=== PATIENT | female | born 1935 | race Caucasian/White ===

== ENCOUNTER → 2018-04-21 | Outpatient (CLI) | payer MEDICARE, OTHER ==
[~2018-04-21] MED LIST: AMLO-104 PO; CALC-649 PO; CETI10CA8 PO; CLO75 PO; DETROL LA PO; DIPH-740 PO; EZET1TAB81 PO; FERR-41 PO; FERROUS GLUCON325 M4 PO; FUR40 PO; GLUC750T10 PO; LEVO100T95 PO; LEVO75TA73 PO; LOSA50TA74 PO; MELA1TAB23 PO; MELO-205 PO; MON10 PO; MONT10TA PO; OFF PLAVIX; OLME40TA17 PO; ONDA4TAB PO; OXYB5TAB86 PO; OXYGENHOME INH; PAN20 PO; PAN40 PO; PER PO; POTA8TAB41 PO; PROM-110 PO; RIVA6CAP11 PO; SIMV-49 PO; SUCR1ORA13 PO; VAL80 PO; [UNRECOGNIZED DRUG - OTHER]; [UNRECOGNIZED DRUG - REMARK]
[2018-04-21 08:26] LABS: PLATELET COUNT, AUTOMATED 217 K/uL (150-450)
[2018-04-21 08:37] LABS: INR 0.93
[2018-04-21 09:04] LABS: LDL CHOLESTEROL 31 mg/dl
== END ==
LOC: LAB 07:59
PROVIDERS: ATTEND Family Medicine
DX: E78.5 Hyperlipidemia, unspecified (principal); E03.9 Hypothyroidism, unspecified; I10 Essential (primary) hypertension; R23.3 Spontaneous ecchymoses; M25.50 Pain in unspecified joint; M25.40 Effusion, unspecified joint
CPT/HCPCS: 36415; 82040; 82247; 82310; 82374; 82435; 82465; 82565; 82947; 83718; 84075; 84132; 84155; 84295; 84443; 84450; 84460; 84478; 84520; 85025; 85610; 85651; 85730; 86038; 86140; 86430

== ENCOUNTER 2018-05-31 14:05 | Outpatient (RCR) | payer MEDICARE, OTHER ==
[~2018-05-31 14:05] MED LIST changes: -LOSA50TA74 PO; +LOSA50TA80 PO
[2018-06-01] MEDS ORDERED: IOPAMIDOL 76% 100 ML INFUS BTL 100 ML ONE (09:51)
--- NOTE | 2018-06-01 12:39 | RADIOLOGY IMAGING REPORT ---
FACILITY: [facility] - [place], [place] PATIENT NAME: Tari Bonilla : 1935 MR: [id number] V: [id number] EXAM DATE: ORDERING PHYSICIAN: SAM DE LA VEGA TECHNOLOGIST: Location: [facility] - [place] Patient: Tari Bonilla : 1935 Visit/Account:[id number] Date of Sevice: 06/01/2018 Study: CT scan of the neck with intravenous contrast Indication: Perceived left-sided neck mass. Patient with history of neck surgery to remove cysts fro m neck Contrast utilized: 75 mL Isovue-370 Technique: Multiple axial images were obtained through the neck following the intravenous administrat ion of iodinated contrast. Coronal and sagittal two-dimensional reconstructions were made from the original data set. One of the following dose optimization techniques was utilized in the performance of this exam: Autom ated exposure control; adjustment of the mA and/or kV according to the patient's size; or use of an i terative reconstruction technique. Specific details can be referenced in the facility's radiology C T exam operational policy. There are no previous studies available for comparison. The examination demonstrates that a metallic marker was placed in the left submandibular region. Sub jacent to this marker is at the left submandibular glands. The left submandibular gland contains sev eral venous lakes. There are prominent veins present in and around the left submandibular gland. Th is is likely the sequela of a lymphangioma or hemangioma. There is no evidence of mass within the le ft submandibular gland. The right submandibular gland is unremarkable in appearance. There is no evidence of abnormality of the parotid glands. The right aspect of the thyroid gland is not visualized. There is a small left thyroid lobe present. There is no evidence of significant cervical adenopathy identified. The visualized intracranial pu[place]o is unremarkable. The tongue base and floor of mouth are unremarkable. The airway is unremarkable. There is no significant abnormality identified within the visualized portions of the lung apices or m ediastinum. IMPRESSION: Skin marker placed in the left submandibular region. Subjacent to this skin marker is th e left submandibular gland. There are venous lakes and prominent veins associated with the left subm andibular gland. There is no evidence of solid mass in this area. Report Dictated By: Amadeo Pereyra at 06/01/2018 12:24 PM Report E-Signed By: Amadeo Pereyra at 06/01/2018 12:35 PM WSN:[id number]
== END 2018-06-01 18:00 | disposition home or self-care (01) ==
LOC: CT 14:05
PROVIDERS: ATTEND Family Medicine
DX: M54.2 Cervicalgia (principal); R22.1 Localized swelling, mass and lump, neck
CPT/HCPCS: 36415; 70492; Q9967; 82040; 82247; 82310; 82374; 82435; 82565; 82947; 84075; 84132; 84155; 84295; 84450; 84460; 84520

== ENCOUNTER → 2018-11-04 | Day surgery (SDC) | payer MEDICARE, OTHER ==
[~2018-11-04] VITALS: Ht 165.1 cm; Wt 61.7 kg
[~2018-11-04] MED LIST changes: +LIDOCAINE/SOD BICARB 8.4% SYR ID ONE; +NORMOSOL R SOLN(*) 1000 ML BAG 1,000 ML IV PRN; +PROPOFOL EMUL(*) 10MG/ML 20 ML 20 ML ONE; +RANI-366 PO
[2018-11-04 07:20] VITALS: BP 155/79
[2018-11-04 09:41] VITALS: BP 112/73
[2018-11-04 09:45] VITALS: BP 114/67
[2018-11-04 10:00] VITALS: BP 143/85
[2018-11-04 10:40] VITALS: BP 166/81
== END ==
LOC: OR 00:59
PROVIDERS: ATTEND Internal Medicine Gastroenterology
DX: K44.9 Diaphragmatic hernia without obstruction or gangrene (principal); K20.9 Esophagitis, unspecified; K29.70 Gastritis, unspecified, without bleeding
CPT/HCPCS: 43239; 43249; 88305; 88313; 88342; J2704

== ENCOUNTER → 2019-01-07 | Outpatient (CLI) | payer MEDICARE, OTHER ==
[~2019-01-07] MED LIST changes: -LIDOCAINE/SOD BICARB 8.4% SYR ID ONE; -NORMOSOL R SOLN(*) 1000 ML BAG 1,000 ML IV PRN; -PROPOFOL EMUL(*) 10MG/ML 20 ML 20 ML ONE; -RANI-366 PO; +RANI-54 PO
--- NOTE | 2019-01-07 09:50 | RADIOLOGY IMAGING REPORT ---
FACILITY: [facility] PATIENT NAME: Tari Bonilla : 1935 MR: [id number] V: [id number] EXAM DATE: ORDERING PHYSICIAN: SAM DE LA VEGA TECHNOLOGIST: Location: [facility] - [place] Patient: Tari Bonilla : 1935 Visit/Account:[id number] Date of Sevice: 01/07/2019 2 VIEWS CHEST INDICATION: Dyspnea. Oxygen at night COMPARISON: X-ray examination from March 2009 FINDINGS: There is reticular nodular coarsening of the subpleural mid lungs and bases bilaterally. No evidence of current failure, large consolidation or effusion. Bones reveal multilevel spondylosis without ac sleetmute osseous finding. IMPRESSION: 1. Reticular nodular coarsening of the interstitium within the subpleural midlungs with findings ind icative of bibasilar scarring. The overall findings suggest interstitial pulmonary fibrosis. Report Dictated By: Stef Rolle MD at 01/07/2019 9:41 AM Report E-Signed By: Stef Rolle MD at 01/07/2019 9:43 AM WSN:[id number]
== END ==
LOC: RAD 09:11
PROVIDERS: ATTEND Family Medicine
DX: R91.8 Other nonspecific abnormal finding of lung field (principal)
CPT/HCPCS: 71046

== ENCOUNTER → 2019-01-10 | Outpatient (CLI) | payer MEDICARE, OTHER | LOC: LAB 07:32 | PROVIDERS: ATTEND Family Medicine | DX: J84.10 Pulmonary fibrosis, unspecified (principal) | CPT/HCPCS: 36415; 82565; 84520 ==

== ENCOUNTER → 2019-01-11 | Outpatient (CLI) | payer MEDICARE, OTHER ==
[~2019-01-11] MED LIST changes: +IOPAMIDOL 76% 100 ML INFUS BTL 100 ML ONE
--- NOTE | 2019-01-11 10:12 | RADIOLOGY IMAGING REPORT ---
FACILITY: [facility] PATIENT NAME: Tari Bonilla : 1935 MR: [id number] V: [id number] EXAM DATE: ORDERING PHYSICIAN: SAM DE LA VEGA TECHNOLOGIST: Location: [facility] - [place] Patient: Tari Bonilla : 1935 Visit/Account:[id number] Date of Sevice: 01/11/2019 EXAMINATION: CT Thorax W/O Contrast CT Thorax W/ Contrast HISTORY: Pulmonary fibrosis TECHNIQUE: Spiral scans were obtained through the chest before and during injection of nonionic iodi nated intravenous contrast. One of the following dose optimization techniques was utilized in the pe rformance of this exam: Automated exposure control; adjustment of the mA and/or kV according to the p atient's size; or use of an iterative reconstruction technique. Specific details can be referenced in the facility's radiology CT exam operational policy. Contrast: 75 mL of IV Isovue-370. COMPARISON STUDIES: Correlation made with chest x-ray 01/07/2019. FINDINGS: Lungs / pleura: There is subpleural reticular opacities predominately in the lung bases characterized by intralobular septal thickening. There may be some early areas of honeycombing. There is no tu nant pulmonary nodule. No focal airspace opacity. There is no pleural effusion. Mediastinum / galina: There is no mediastinal or hilar mass. No significant adenopathy. Heart / pericardium: Heart size upper limits of normal. There is no pericardial effusion. Vessels: Atherosclerotic changes are present in the aorta. There is no aneurysm or dissection. Cor onary artery calcifications are also noted. Musculoskeletal / Body wall: Degenerative changes are present in the thoracic spine. There is no foc al compression fracture. No aggressive lytic or blastic lesion identified. Lymph node assessment: No significant axillary, hilar, or mediastinal adenopathy. Lower neck: Negative Upper abdomen: Small hiatal hernia is present. IMPRESSION: 1. Subpleural interstitial opacities and early changes of honeycombing are consistent with idiopathi c interstitial fibrosis or UIP. 2. No pleural effusion or airspace opacity to suggest an acute process. 3. No significant adenopathy and no pulmonary nodules. 4. Small hiatal hernia. Report Dictated By: Ирина Howard MD at 01/11/2019 8:34 AM Report E-Signed By: Ирина Howard MD at 01/11/2019 10:05 AM WSN:[email or web address]
== END ==
LOC: CT 02:11
PROVIDERS: ATTEND Family Medicine
DX: R10.9 Unspecified abdominal pain (principal); R19.7 Diarrhea, unspecified; K92.1 Melena; K44.9 Diaphragmatic hernia without obstruction or gangrene
CPT/HCPCS: 71270; Q9967